=== PATIENT | female | born 1960 ===

== ENCOUNTER 2023-06-28 12:29 | Outpatient (CLI) | payer BC, SELFPAY ==
--- NOTE | 2023-06-28 13:00 | CRLHL7_ITS ---
For Patients: As a result of the Century Cures Act, medical imaging exams and procedure reports are released immediately into your electronic medical record. You may view this report before your referring provider. If you have questions, please contact your health care provider. BILATERAL SCREENING MAMMOGRAM WITH COMPUTER-AIDED DETECTION AND TOMOSYNTHESIS TECHNIQUE: CC and MLO views were obtained. These mammographic images have been obtained using full-field digital technique. These mammographic images were interpreted with the benefit of computer-aided detection. Breast Tomosynthesis was used in this interpretation. COMPARISON FILM: 04/16/22, 11/09/20, 02/18/19. FINDINGS: There are scattered areas of fibroglandular density IMPRESSION: There is no radiographic evidence for malignancy. ASSESSMENT: BI-RADS Category 1: Negative RECOMMENDATION: Routine screening mammogram in 1 year. A lay language report of this examination will be provided to the patient. Chandan Leahy M.D. Diagnostic/Nuclear Medicine Radiologist [email or web address] ARLINE/Dictated by: Chandan Leahy MD @ 07/01/2023 8:54:00 AM (Electronically Signed)
== END 2023-06-28 12:30 | disposition home or self-care (01) ==
LOC: MAMMO 12:31
PROVIDERS: PCP Physician Assistant Medical; Visit Provider Physician Assistant Medical
DX: Z12.31 Encounter for screening mammogram for malignant neoplasm of breast (principal)
CPT/HCPCS: 77063; 77067